=== PATIENT | female | born 1950 | race African-American/Black ===

== ENCOUNTER 2020-11-16 23:49 | Inpatient (IN) ==
[2020-11-17] MEDS ORDERED: ACETAMINOPHEN 325 MG TABLET PO PRN (02:27)
[2020-11-17] MEDS ORDERED: DEXTROSE 50% 25 GM/50 ML VIAL IV PRN ×2 (02:27)
[2020-11-17] MEDS ORDERED: GLUCAGON 1 MG VIAL IM PRN ×2 (02:27)
[2020-11-17] MEDS ORDERED: ONDANSETRON 4 MG/2 ML VIAL IV PRN (02:27)
[2020-11-17] MEDS ORDERED: MELATONIN 3 MG TABLET PO PRN (02:27)
[2020-11-17] MEDS: cefTRIAXone 1,000 MG in SYRINGE 1 EACH IV SCH (03:20)
[2020-11-17] MEDS: HEPARIN 5,000 UNIT/1 ML VIAL SUBCUT SCH ×3 (05:14→21:08)
[2020-11-17 06:04] LABS: Basophils % 0.5 % (0.0-0.8); Eosinophils % 0.3 % (0.00-10.9); Hematocrit 31.6 VOL% (35.7-47.0); Immature Granulocytes % 0.3 %; Immature Granulocytes Absolute 0.01 #; Lymphocytes # 0.5 10*3/uL (1.4-4.0); Lymphocytes % 14.4 % (21.3-54.2); Mean Corpuscular HGB Conc 31.6 GM/DL (32-36); Mean Corpuscular Volume 87.8 FL (87-102); Mean Platelet Volume 10.9 FL (9.6-12.0); Neutrophils % 73.5 % (38.7-73.9); Red Cell Distribution Width 15.6 % (9.3-17.3); White Blood Count 3.7 T/CUMM (4-12)
[2020-11-17 06:18] LABS: Platelet Count 97 T/CUMM (130-400)
[2020-11-17 06:19] LABS: Albumin 2.7 G/DL (3.4-5.0); Bilirubin,Total 0.7 MG/DL (0.2-1.0); Calcium 8.4 MG/DL (8.5-10.1); Ferritin 1173.1 ng/ml (8-252); Potassium 3.4 MMOL/L (3.5-5.1); Total Protein 6.9 G/DL (5.0-7.5)
[2020-11-17 07:39] LABS: Hypochromasia 1+
[2020-11-17 07:40] LABS: Microcytosis 1+; Ovalocytes Slight; Platelet Estimate Decreased
[2020-11-17] MEDS: ALBUTEROL INHALER 18 GM INH SCH ×3 (09:29→19:36)
[2020-11-17] MEDS: CHOLECALCIFEROL 1,000 UNIT TABLET PO SCH (09:29)
[2020-11-17] MEDS: ASCORBIC ACID 500 MG TABLET PO SCH ×2 (09:30→21:08)
[2020-11-17] MEDS: CITALOPRAM 20 MG TABLET PO SCH (09:30)
[2020-11-17] MEDS: MEMANTINE 10 MG TABLET PO SCH ×2 (09:30→21:08)
[2020-11-17] MEDS: CETIRIZINE 10 MG TABLET PO SCH (09:30)
[2020-11-17] MEDS: ZINC GLUCONATE 50 MG TABLET PO SCH (09:31)
[2020-11-17] MEDS: FAMOTIDINE 20 MG TABLET PO SCH ×2 (09:31→21:08)
[2020-11-17] MEDS: ASPIRIN EC 81 MG TABLET PO SCH (09:31)
[2020-11-17] MEDS: INSULIN REGULAR 100 UNIT/ML SUBCUT SCH ×4 (10:49→21:04)
[2020-11-17] MEDS: FLUTICASONE 50 MCG NASAL SPRAY 16 GM BOTTLE BOTH NARES SCH (13:15)
[2020-11-17] MEDS: carvediloL 3.125 MG TABLET PO SCH (21:05)
[2020-11-17] MEDS: amLODIPine 10 MG TABLET PO SCH (21:06)
[2020-11-17] MEDS: LOSARTAN 50 MG TABLET PO SCH (21:06)
[2020-11-17] MEDS: DONEPEZIL 10 MG TABLET PO SCH (21:08)
[2020-11-18] MEDS: ALBUTEROL INHALER 18 GM INH SCH ×4 (00:30→19:11)
[2020-11-18] MEDS: cefTRIAXone 1,000 MG in SYRINGE 1 EACH IV SCH (02:50)
[2020-11-18 04:22] LABS: Risk Ratio 3.23
[2020-11-18] MEDS: HEPARIN 5,000 UNIT/1 ML VIAL SUBCUT SCH ×3 (06:24→22:00)
[2020-11-18] MEDS: INSULIN REGULAR 100 UNIT/ML SUBCUT SCH ×4 (08:12→22:22)
[2020-11-18] MEDS: carvediloL 3.125 MG TABLET PO SCH ×2 (09:43→21:42)
[2020-11-18] MEDS: CITALOPRAM 20 MG TABLET PO SCH (09:43)
[2020-11-18] MEDS: ASCORBIC ACID 500 MG TABLET PO SCH ×2 (09:43→22:10)
[2020-11-18] MEDS: ASPIRIN EC 81 MG TABLET PO SCH (09:43)
[2020-11-18] MEDS: CETIRIZINE 10 MG TABLET PO SCH (09:43)
[2020-11-18] MEDS: CHOLECALCIFEROL 1,000 UNIT TABLET PO SCH (09:43)
[2020-11-18] MEDS: FAMOTIDINE 20 MG TABLET PO SCH ×2 (09:44→22:10)
[2020-11-18] MEDS: MEMANTINE 10 MG TABLET PO SCH ×2 (09:44→22:09)
[2020-11-18] MEDS: ZINC GLUCONATE 50 MG TABLET PO SCH (09:44)
[2020-11-18] MEDS: FLUTICASONE 50 MCG NASAL SPRAY 16 GM BOTTLE BOTH NARES SCH (09:55)
[2020-11-18] MEDS: methylPREDNISolone SOD SUC 40 MG/1 ML VIAL IV SCH ×3 (12:41→22:00)
[2020-11-18] MEDS: amLODIPine 10 MG TABLET PO SCH (21:42)
[2020-11-18] MEDS: LOSARTAN 50 MG TABLET PO SCH (21:42)
[2020-11-18] MEDS: DONEPEZIL 10 MG TABLET PO SCH (22:09)
[2020-11-19] MEDS: ALBUTEROL INHALER 18 GM INH SCH ×4 (00:05→19:00)
[2020-11-19] MEDS: methylPREDNISolone SOD SUC 40 MG/1 ML VIAL IV SCH ×4 (03:35→22:15)
[2020-11-19] MEDS: HEPARIN 5,000 UNIT/1 ML VIAL SUBCUT SCH ×3 (06:05→22:15)
[2020-11-19] MEDS: INSULIN REGULAR 100 UNIT/ML SUBCUT SCH ×4 (08:12→20:00)
[2020-11-19] MEDS: ZINC GLUCONATE 50 MG TABLET PO SCH (09:13)
[2020-11-19] MEDS: ASPIRIN EC 81 MG TABLET PO SCH (09:13)
[2020-11-19] MEDS: ASCORBIC ACID 500 MG TABLET PO SCH ×2 (09:14→20:00)
[2020-11-19] MEDS: CITALOPRAM 20 MG TABLET PO SCH (09:14)
[2020-11-19] MEDS: CHOLECALCIFEROL 1,000 UNIT TABLET PO SCH (09:14)
[2020-11-19] MEDS: CETIRIZINE 10 MG TABLET PO SCH (09:14)
[2020-11-19] MEDS: FAMOTIDINE 20 MG TABLET PO SCH ×2 (09:14→20:00)
[2020-11-19] MEDS: carvediloL 3.125 MG TABLET PO SCH ×2 (09:14→20:05)
[2020-11-19] MEDS: MEMANTINE 10 MG TABLET PO SCH ×2 (09:14→20:00)
[2020-11-19] MEDS: FLUTICASONE 50 MCG NASAL SPRAY 16 GM BOTTLE BOTH NARES SCH (09:50)
[2020-11-19] MEDS: DONEPEZIL 10 MG TABLET PO SCH (20:00)
[2020-11-19] MEDS: LOSARTAN 50 MG TABLET PO SCH (20:05)
[2020-11-19] MEDS: amLODIPine 10 MG TABLET PO SCH (20:06)
[2020-11-20] MEDS: methylPREDNISolone SOD SUC 40 MG/1 ML VIAL IV SCH ×4 (05:24→21:59)
[2020-11-20] MEDS: HEPARIN 5,000 UNIT/1 ML VIAL SUBCUT SCH ×3 (05:24→21:58)
[2020-11-20 05:53] LABS: Basophils % 0.2 % (0.0-0.8); Hemoglobin 10.5 GM/DL (12.0-16.0); Immature Granulocytes % 1.1 %; Immature Granulocytes Absolute 0.05 #; Lymphocytes # 0.5 10*3/uL (1.4-4.0); Lymphocytes % 9.7 % (21.3-54.2); Mean Corpuscular HGB Conc 31.8 GM/DL (32-36); Mean Corpuscular Volume 85.5 FL (87-102); Mean Platelet Volume 12.7 FL (9.6-12.0); Monocytes % 2.5 % (1.7-12.7); NRBC # 0.02 10*3/uL; Neutrophils % 86.5 % (38.7-73.9); Platelet Count 79 T/CUMM (130-400); Red Blood Count 3.86 MC/CUMM (3.8-5.5); Red Cell Distribution Width 15.7 % (9.3-17.3); White Blood Count 4.7 T/CUMM (4-12)
[2020-11-20 06:16] LABS: Albumin 2.6 G/DL (3.4-5.0); Bilirubin,Direct 0.31 MG/DL (0.0-0.20); Bilirubin,Indirect 0.7 MG/DL (0.0-1.0); Calcium 8.5 MG/DL (8.5-10.1); Osmolality,Calculated 283.4 MOS/KG (273-304); Potassium 4.1 MMOL/L (3.5-5.1); Total Protein 6.6 G/DL (5.0-7.5)
[2020-11-20 06:17] LABS: Hypochromasia 1+
[2020-11-20 06:18] LABS: Microcytosis 1+; Ovalocytes Slight; Target Cells Slight
[2020-11-20 06:19] LABS: Platelet Estimate Decreased
[2020-11-20] MEDS: carvediloL 3.125 MG TABLET PO SCH ×2 (08:08→20:55)
[2020-11-20] MEDS: CITALOPRAM 20 MG TABLET PO SCH (08:08)
[2020-11-20] MEDS: MEMANTINE 10 MG TABLET PO SCH ×2 (08:08→20:58)
[2020-11-20] MEDS: ASCORBIC ACID 500 MG TABLET PO SCH ×2 (08:08→20:58)
[2020-11-20] MEDS: ZINC GLUCONATE 50 MG TABLET PO SCH (08:08)
[2020-11-20] MEDS: CHOLECALCIFEROL 1,000 UNIT TABLET PO SCH (08:08)
[2020-11-20] MEDS: ASPIRIN EC 81 MG TABLET PO SCH (08:08)
[2020-11-20] MEDS: FAMOTIDINE 20 MG TABLET PO SCH ×2 (08:09→08:51)
[2020-11-20] MEDS: INSULIN REGULAR 100 UNIT/ML SUBCUT SCH ×4 (08:09→20:00)
[2020-11-20] MEDS: CETIRIZINE 10 MG TABLET PO SCH (08:09)
[2020-11-20] MEDS: ALBUTEROL INHALER 18 GM INH SCH ×4 (08:10→19:55)
[2020-11-20] MEDS: FLUTICASONE 50 MCG NASAL SPRAY 16 GM BOTTLE BOTH NARES SCH (08:10)
[2020-11-20] MEDS ORDERED: TUBERCULIN SKIN TEST 0.1 ML SYRINGE INTRADERM ONE (09:30)
[2020-11-20 13:10] LABS: Hepatitis B Core IgM Quant < 0.05 Index; Hepatitis B Surface Ag Quant < 0.10 Index; Hepatitis B Surface Ag Result Non-Reactive (NonReactive); Hepatitis C Virus Ab Quant 0.06 Index; Hepatitis C Virus Ab Result Non-Reactive (NonReactive)
[2020-11-20] MEDS: LOSARTAN 50 MG TABLET PO SCH (20:55)
[2020-11-20] MEDS: DONEPEZIL 10 MG TABLET PO SCH (20:55)
[2020-11-20] MEDS: amLODIPine 10 MG TABLET PO SCH (20:58)
[2020-11-20] MEDS ORDERED: ATORVASTATIN 40 MG TABLET PO SCH (21:00)
[2020-11-21] MEDS: ALBUTEROL INHALER 18 GM INH SCH ×3 (00:53→14:17)
[2020-11-21] MEDS: methylPREDNISolone SOD SUC 40 MG/1 ML VIAL IV SCH ×2 (04:01→09:08)
[2020-11-21] MEDS: HEPARIN 5,000 UNIT/1 ML VIAL SUBCUT SCH ×2 (05:25→14:22)
[2020-11-21] MEDS: INSULIN REGULAR 100 UNIT/ML SUBCUT SCH ×2 (07:55→11:23)
[2020-11-21] MEDS: CETIRIZINE 10 MG TABLET PO SCH (08:48)
[2020-11-21] MEDS: carvediloL 3.125 MG TABLET PO SCH (08:48)
[2020-11-21] MEDS: CITALOPRAM 20 MG TABLET PO SCH (08:48)
[2020-11-21] MEDS: ZINC GLUCONATE 50 MG TABLET PO SCH (08:48)
[2020-11-21] MEDS: MEMANTINE 10 MG TABLET PO SCH (08:48)
[2020-11-21] MEDS: CHOLECALCIFEROL 1,000 UNIT TABLET PO SCH (08:48)
[2020-11-21] MEDS: ASCORBIC ACID 500 MG TABLET PO SCH (08:48)
[2020-11-21] MEDS: FAMOTIDINE 20 MG TABLET PO SCH (08:48)
[2020-11-21] MEDS: ASPIRIN EC 81 MG TABLET PO SCH (08:48)
[2020-11-21] MEDS: FLUTICASONE 50 MCG NASAL SPRAY 16 GM BOTTLE BOTH NARES SCH (10:03)
[2020-11-21 11:17] VITALS: BP 118/58
== END 2020-11-21 14:38 | disposition swing bed (61) | DRG 177 ==
LOC: EDBD → N.2E 11-17 01:46 → SUATTDRO 11-17 01:46
PROVIDERS: ADMIT Internal Medicine; ATTEND Internal Medicine